=== PATIENT | male | born 1950 | race Caucasian/White ===

== ENCOUNTER 2019-07-25 12:08 | Inpatient (IN) ==
[2019-07-25] MEDS ORDERED: NS 1,000 ML IV PRN (12:38)
[2019-07-25 12:54] LABS: URINE SOURCE CLEAN CATCH
[2019-07-25 13:03] LABS: BILIRUBIN URINE NEGATIVE (NEGATIVE); BLOOD URINE NEGATIVE (NEGATIVE); COLOR YELLOW; GLUCOSE URINE NEGATIVE (NEGATIVE); KETONE URINE NEGATIVE (NEGATIVE); LEUKOCYTES URINE NEGATIVE (NEGATIVE); NITRITE URINE NEGATIVE (NEGATIVE); PH URINE 5.5; PROTEIN URINE TRACE mg/dL (NEGATIVE); SP GRAVITY URINE 1.023; TURBIDITY URINE CLEAR (CLEAR); UR EPITHELIAL CELLS <10 /HPF (<10); URINE BACTERIA NEGATIVE /HPF; URINE RBC <10 /HPF (<10); URINE WBC <10 /HPF (<10); UROBILINOGEN URINE NORMAL (NORMAL)
--- NOTE | 2019-07-25 13:05 | Diag Imaging Result Doc PS360 ---
CHEST-PORTABLE - 07/25/2019 INDICATION: weakness COMPARISON: 06/27/2018 FINDINGS: There is probably a hiatal hernia. The lungs are clear. Heart size is normal. No pneumothorax or pleural effusion. IMPRESSION: No acute disease. Electronically signed by Arun Betancur 07/25/2019 1:03 PM
[2019-07-25 13:19] LABS: ALBUMIN 3.8 g/dL (3.5-5.0); CALCIUM 8.8 mg/dL (8.8-10.2); CREATININE 1.2 mg/dL (0.7-1.2); POTASSIUM 4.9 mmol/L (3.5-5.1); TOTAL BILIRUBIN 0.4 mg/dL (0.20-1.00); TOTAL PROTEIN 6.4 g/dL (6.3-8.3)
[2019-07-25 13:23] LABS: UR AMPHETAMINES QUAL NONE DETECTED (NONE DETECT); UR BARBITUATES QUAL NONE DETECTED (NONE DETECT); UR BENZODIAZEPIN QUAL NONE DETECTED (NONE DETECT); UR CANNABINOIDS QUAL NONE DETECTED (NONE DETECT); UR COCAINE QUAL NONE DETECTED (NONE DETECT); UR METHADONE QUAL NONE DETECTED (NONE DETECT); UR METHAMPHETAMINE QUAL NONE DETECTED (NONE DETECT); UR OPIATES QUAL NONE DETECTED (NONE DETECT); UR OXYCODONE QUAL NONE DETECTED (NONE DETECT); UR PCP QUAL NONE DETECTED (NONE DETECT); UR PROPOXYPHENE QUAL NONE DETECTED (NONE DETECT); UR TCA QUAL NONE DETECTED (NONE DETECT)
[2019-07-25 13:26] LABS: BASO# 0.09 X1000 (0.0-0.2); BASO% 0.8 % (0.0-0.8); EOS# 0.02 X1000 (0.0-0.7); EOS% 0.2 % (0.0-10.0); HEMATOCRIT 18.2 % (42.0-52.0); HEMOGLOBIN 4.9 g/dL (14.0-18.0); IMM GRAN# 0.05 X1000 (0.0-0.04); IMM GRAN% 0.5 % (0.0-0.5); LYMPH# 1.17 X1000 (1.2-3.4); LYMPH% 10.9 % (20.5-51.1); MCH 20.1 PG (27-31); MCHC 26.9 g/dL (33-37); MCV 74.6 FL (81-99); MONO# 1.05 X1000 (0.11-0.59); MONO% 9.7 % (1.7-9.3); MPV 10.4 FL (7.4-10.4); NEUT% 77.9 % (42.2-75.2); PLT 514 X1000 (130-400); RBC 2.44 XMIL (4.7-6.1); RDW 19.1 % (11.5-14.5); WBC 10.78 X1000 (4.8-10.8)
[2019-07-25] MEDS ORDERED: NS 500 ML IV ONE (13:26)
--- NOTE | 2019-07-25 13:33 | EKG Report ---
Test Performed on : 07/25/2019 12:34:43 PM Test Reason : weakness dizziness Blood Pressure : / mmHG Vent. Rate : 096 BPM Atrial Rate : 096 BPM P-R Int : 138 ms QRS Dur : 078 ms QT Int : 368 ms P-R-T Axes : 050 007 048 degrees QTc Int : 464 ms Normal sinus rhythm. Increased R/S ratio in V1, consider early transition or posterior infarct Abnormal ECG When compared with ECG of 27-JUN-2018 17:33, No significant change was found Unconfirmed Result
[2019-07-25 13:34] LABS: INR 1.02; PROTIME 13.9 Seconds (11.0-16.0); PTT 25.9 Seconds (22.3-41.8)
[2019-07-25 14:07] LABS: OCCULT BLOOD 1 NEGATIVE (NEGATIVE)
[2019-07-25 15:14] LABS: ANISOCYTOSIS 2+; HYPOCHROM 1+; LYMPHS 10 % (21-51); MICROCYTOSIS 2+; MONO 12 % (1-9); POIKILOCYTOSIS OCCASIONAL; POLYCHROM OCCASIONAL; SEGS 78 % (42-75)
[2019-07-25] MEDS ORDERED: TYLENOL PO PRN (16:20)
[2019-07-25] MEDS ORDERED: ZOFRAN IV PRN (16:20)
[2019-07-25] MEDS ORDERED: NS 1,000 ML IV SCH (16:30)
[2019-07-25 19:07] LABS: RETIC% 3.23 % (0.8-2.1); RETIC-HE 15.8 PG (28.2-36.6)
--- NOTE | 2019-07-25 19:28 | HISTORY AND PHYSICAL ---
ADDENDUM: CHIEF COMPLAINT: Dizziness. Patient presented to the hospital with dizziness for the past 2 weeks. Denies any bleeding, bruising, hematemesis, hematochezia, melena. Does have history of hypertension. On exam he is awake, alert, he is oriented. He is in no distress while he is lying in the bed. His skin is pale. Hemoglobin and hematocrit was noted at 4 and 18, he was heme negative. We are going to admit him the hospital, type, cross, transfuse. Will continue to Hemoccult stools and will follow. cc: Brian Koo MD
--- NOTE | 2019-07-25 19:35 | HISTORY AND PHYSICAL ---
PRIMARY CARE PHYSICIAN: Dr. Marian Alas at the [facility] in [place]. CHIEF COMPLAINT: Weakness and dizziness. HISTORY OF PRESENT ILLNESS: Mr. Lowery is a 69-year-old male who presents with past medical history of hypertension, depression, and vitamin D deficiency. The patient presents to the ER with complaints of weakness, dizziness, increased thirst, vomiting and chills that have been substantially getting worse for the past 2 weeks. The patient did go to the [facility] this morning to see his psychiatrist. He was noted to be very pale. They recommended he come to the ER. The patient does deny any palpitations, chest pain, orthopnea, PND, cough, dyspnea, hemoptysis, nausea, melena, dysphagia, diarrhea, constipation, dysuria, urinary frequency, hematuria, muscle pain or weakness, syncope, or any other pertinent symptoms at this time. REVIEW OF SYSTEMS: A 10-point review of systems has been obtained, and all are negative except what is stated above in HPI. PAST MEDICAL HISTORY: 1. Hypertension. 2. Depression. 3. Vitamin D deficiency. PAST SURGICAL HISTORY: None. FAMILY HISTORY: Mother: Hypertension, diabetes, lupus. Father: OK. Sister: Lupus, HT cancer, breast cancer and colitis. Another sister has hypertension. SOCIAL HISTORY: The patient does live alone. He lives here in [place]. He is retired. He denies any smoking, alcohol or illicit drug use. He does not use a cane or a walker or oxygen, CPAP or BiPAP use. PATIENT PHARMACY: [facility] in [place]. ALLERGIES: No known drug allergies. HOME MEDICATIONS: 1. Lexapro 20 mg p.o. daily. 2. Amlodipine 10 mg 1/2 tablet p.o. daily. 3. Vitamin D3 1000 units p.o. daily. PHYSICAL EXAMINATION: VITAL SIGNS: Temperature 98.6 degrees, pulse rate 92, respiratory rate 22, blood pressure 108/64, O2 saturation 100% on room air. GENERAL: This is a 69-year-old male. He is lying in the ER stretcher. He is well nourished and well developed. He is in no acute distress at present time. HEENT: Atraumatic, normocephalic. Sclerae are pale. Pupils are equal, round, reactive to light. Mucous membrane is dry. NECK: Supple. No lymphadenopathy. Trachea is midline. No JVD. CARDIOVASCULAR: Regular rate and rhythm. No murmurs, gallops, or rubs appreciated. RESPIRATORY: Lung sounds clear. Equal chest excursion. Respirations nonlabored. No accessory muscle usage. GASTROINTESTINAL: Abdomen is soft, nontender, nondistended. Bowel sounds present x4. GENITOURINARY: No CVA tenderness noted. The patient is voiding without difficulty. Urine is clear, yellow. NEUROLOGIC: Patient is awake, alert and oriented, able to follow all my commands appropriately. The patient is hard of hearing, and I do have to yell to talk with him though. There do not appear to be any deficits though. MUSCULOSKELETAL: Full distal strength noted. No abnormalities. No deformities. EXTREMITIES: No clubbing, no cyanosis, no edema. DP and PT pulses are present and palpable. SKIN: Warm and dry. It is very pale. It is intact. There are no rashes. No bruises. No diaphoresis. Turgor is very poor. LABORATORY AND DIAGNOSTICS: White blood cell count 10.78, red blood cell count 2.44, hemoglobin 4.9, hematocrit 18.2, MCV 74.6, MCH 20.1, MCHC 26.9, RDW is 19.1, platelet count is 514,000. The patient is noted to have segmented neutrophils of 78, lymphocytes 10, monocytes 12, hypochromia 1+ , occasional polychromasia, poikilocytosis occasional, anisocytosis 2+, microcytosis 2+. Sodium 137, potassium 4.9, carbon dioxide 20, BUN 16, creatinine 1.2, glucose 128. Urinalysis is negative. Stool for occult blood is negative. Urine toxicology is negative. Chest x-ray shows no acute disease. EKG shows normal sinus rhythm with a rate of 96. ASSESSMENT: 1. Anemia without acute blood loss. 2. Generalized weakness. 3. Chronic hypertension. 4. Situational depression. 5. Vitamin E deficiency. PLAN: We will admit this patient to the medical floor. We are going to administer 2 units of packed red blood cells on this patient. We will repeat all his labs in the morning. I will add iron studies and a vitam B12 level to blood in lab. We are going to hold off on resuming his hypertension medications at this time. The patient's blood pressure is a little low at this time. We will resume his medications when needed. We will resume his depression medicine and his vitamin D medicine. I am going to start him on some IV fluid hydration, normal saline at 100 mL an hour. I have provided him with supplemental O2 as needed. I have provided him with a healthy heart diet, Tylenol p.r.n., Zofran p.r.n., Prilosec daily for GI prophylaxis. For DVT prophylaxis, I provided him with SCDs. I have placed him on a lunchroom monitor, and we will monitor him closely. All other further recommendations pending hospital course and laboratory data. Dictated by FELY Burleson for Brian Koo MD cc: MD Marian Ulloa MD MTDD
[2019-07-26] MEDS: PRILOSEC PO SCH (06:09)
[2019-07-26 06:13] LABS: BASO# 0.07 X1000 (0.0-0.2); BASO% 0.8 % (0.0-0.8); EOS# 0.06 X1000 (0.0-0.7); EOS% 0.7 % (0.0-10.0); IMM GRAN# 0.05 X1000 (0.0-0.04); IMM GRAN% 0.6 % (0.0-0.5); LYMPH% 23.4 % (20.5-51.1); MCH 22.7 PG (27-31); MCHC 29.2 g/dL (33-37); MCV 77.7 FL (81-99); MPV 10.2 FL (7.4-10.4); NEUT# 5.18 X1000 (1.4-6.5); NEUT% 60.5 % (42.2-75.2); PLT 427 X1000 (130-400); RBC 3.09 XMIL (4.7-6.1); RDW 19.7 % (11.5-14.5); WBC 8.56 X1000 (4.8-10.8)
[2019-07-26 06:30] LABS: AGAP 11; BUN 16 mg/dL (8-22); CALCIUM 8.6 mg/dL (8.8-10.2); CHLORIDE 107 mmol/L (98-107); COSMO 278; CREATININE 0.9 mg/dL (0.7-1.2); ESTIMATED GFR > 60; GLUCOSE 94 mg/dL (70-104); MAGNESIUM 2.1 mg/dL (1.5-2.7); POTASSIUM 4.4 mmol/L (3.5-5.1); SODIUM 139 mmol/L (136-145); TCO2 21 mmol/L (25-35)
[2019-07-26] MEDS ORDERED: TYLENOL PO ONE (06:33)
[2019-07-26] MEDS ORDERED: NS 500 ML IV ONE (06:33)
[2019-07-26] MEDS ORDERED: MISC. PHARMACY COMMUNICATION SCH (08:15)
[2019-07-26] MEDS ORDERED: LEXAPRO PO SCH (09:00)
[2019-07-26] MEDS ORDERED: VENOFER 200 MG in NS 100 ML IV ONE (09:00)
[2019-07-26] MEDS: VITAMIN D PO SCH (09:49)
[2019-07-26] MEDS: LEXAPRO PO SCH (09:49)
[2019-07-26 12:28] LABS: OCCULT BLOOD 1 NEGATIVE (NEGATIVE); OCCULT BLOOD 2 NEGATIVE (NEGATIVE)
[2019-07-26 16:46] LABS: BASO# 0.08 X1000 (0.0-0.2); BASO% 0.9 % (0.0-0.8); EOS# 0.09 X1000 (0.0-0.7); HEMATOCRIT 26.8 % (42.0-52.0); HEMOGLOBIN 8.1 g/dL (14.0-18.0); IMM GRAN# 0.04 X1000 (0.0-0.04); IMM GRAN% 0.5 % (0.0-0.5); LYMPH# 1.51 X1000 (1.2-3.4); LYMPH% 17.4 % (20.5-51.1); MCHC 30.2 g/dL (33-37); MCV 79.3 FL (81-99); MONO# 1.38 X1000 (0.11-0.59); MONO% 15.9 % (1.7-9.3); MPV 10.1 FL (7.4-10.4); NEUT# 5.59 X1000 (1.4-6.5); NEUT% 64.3 % (42.2-75.2); PLT 395 X1000 (130-400); RBC 3.38 XMIL (4.7-6.1); RDW 19.5 % (11.5-14.5); WBC 8.69 X1000 (4.8-10.8)
--- NOTE | 2019-07-26 21:03 | PROGRESS NOTE ---
DATE: 07/26/2019 SUBJECTIVE: The patient has no new complaints. States he is feeling okay. He has had no blood in his stool. He has been heme-negative. PHYSICAL EXAMINATION: Vital Signs: Reviewed. He is awake, alert, oriented. He is pleasant to talk with, lying flatly in the bed. HEENT: Normocephalic. Neck: Supple. Cardiovascular: Regular rate. Chest: Clear. Abdomen: Soft. Extremities: Moves all extremities. Neurologic: No changes. ASSESSMENT/PLAN: Anemia, likely of chronic iron deficiency. His hemoglobin and hematocrit are still low at 7 and 23. Will transfuse 1 more unit, and we are going to add iron transfusion, Venofer. We will recheck in the a.m. If stable, he can be discharged home and follow up outpatient. cc: Brian Koo MD
[2019-07-27] MEDS: PRILOSEC PO SCH (06:05)
[2019-07-27 06:56] LABS: HEMATOCRIT 27.1 % (42.0-52.0); MCH 23.3 PG (27-31); MCHC 29.5 g/dL (33-37); MCV 78.8 FL (81-99); MPV 10.4 FL (7.4-10.4); RBC 3.44 XMIL (4.7-6.1); RDW 19.9 % (11.5-14.5); WBC 10.8 X1000 (4.8-10.8)
[2019-07-27 07:15] LABS: AGAP 12; ALBUMIN 3.3 g/dL (3.5-5.0); ALKALINE PHOSPHATASE 69 U/L (32-122); BUN 17 mg/dL (8-22); CALCIUM 8.8 mg/dL (8.8-10.2); CHLORIDE 105 mmol/L (98-107); COSMO 277; ESTIMATED GFR > 60; GLUCOSE 92 mg/dL (70-104); GOT 14 U/L (10-34); GPT 14 U/L (10-44); POTASSIUM 4.1 mmol/L (3.5-5.1); SODIUM 138 mmol/L (136-145); TCO2 21 mmol/L (25-35); TOTAL PROTEIN 6.1 g/dL (6.3-8.3)
[2019-07-27 08:58] VITALS: BP 143/73
[2019-07-27] MEDS: LEXAPRO PO SCH (09:57)
[2019-07-27] MEDS: VITAMIN D PO SCH (09:57)
--- NOTE | 2019-07-27 16:06 | PROVIDER DOCUMENTATION ---
This chart was entered by Lizzie Vargas Scribe, acting as scribe for Merced Enriquez MD. HPI-General Adult - General Chief Complaint: Weakness Stated Complaint: HIGH HR / DIZZY / VOMITTING Time Seen by Provider: 07/25/19 12:12 Source: family Allergies/Adverse Reactions: Patient Allergies Allergy/AdvReac Type Severity Reaction Status Date / Time No Known Allergies Allergy Verified 06/27/18 16:28 Home Medications: Home Medication List Medication Instructions Recorded Confirmed Last Taken Type Amlodipine Besylate [Norvasc] 0.5 tab PO DAILY #60 tab 07/01/18 07/25/19 07/25/19 08:00 Rx Acetaminophen [Tylenol] 650 mg PO Q6H PRN PRN 07/25/19 07/25/19 Unknown History Cholecalciferol (Vit D3) [Vitamin 1,000 unit PO DAILY 07/25/19 07/25/19 Unknown History D3] Escitalopram Oxalate [Lexapro] 20 mg PO DAILY 07/26/19 07/26/19 Unknown History Ferrous Sulfate [Ferrousul] 325 mg PO DAILY #30 tab 07/27/19 Unknown Rx - History of Present Illness -Gen Adult Nature of Presenting Problems: Patient is a 69 year old male who presents with dizziness. Family states dizziness has been present for 2 weeks. Patient denies pain currently. Family states history of HTN and depression. Location of Pain/Injury: reports: none Quality of Pain: reports: none Severity: reports: mild Onset/Duration: reports: other (2 weeks) Timing: reports: still present Context/Activities at Onset: reports: light activity Associated Symptoms: reports: dizziness Similar Symptoms Previously?: Yes Recently seen or treated by another doctor?: No Review of Systems - Adult - REVIEW OF SYSTEMS - ADULT Constitutional: reports: no symptoms reported Eyes: reports: no symptoms reported Ears, Nose, Mouth & Throat: reports: no symptoms reported Cardiovascular: reports: no symptoms reported Respiratory: reports: no symptoms reported Gastrointestinal: reports: no symptoms reported Genitourinary: reports: no symptoms reported Musculoskeletal: reports: no symptoms reported Integumentary: reports: no symptoms reported Neurological: reports: see HPI, dizziness/vertigo (dizziness). denies: headache/migraines, syncope Psychiatric: reports: no symptoms reported Endocrine: reports: no symptoms reported Hematologic/Lymphatic: reports: no symptoms reported Allergic/Immunologic: reports: no symptoms reported All Other Systems: Reviewed and Negative Past History - Adult - PAST MEDICAL HISTORY-ADULT Review of Records: reports: Old Records Reviewed, Nursing Assessment Review, Medications Reviewed, Social history reviewed & non-contributory. Major Childhood Illnesses: reports: denies history Cardiovascular: reports: HTN Respiratory: reports: denies history Gastrointestinal: reports: denies history Obstetrical/Gynecological: reports: denies history Genitourinary: reports: denies history Musculoskeletal: reports: denies history Neurological: reports: denies history Psychiatric: reports: depression Endocrine/Immune: reports: denies history Other Conditions: reports: denies history - PRIOR SURGERIES/PROCEDURES Surgical/Procedure History: reports: none - IMMUNIZATION STATUS Childhood Immunizations: See Nurse Assessment Flu Vaccine: See Nurse Assessment - FAMILY HISTORY Family History: reviewed, not pertinent - SOCIAL HISTORY Smoking: denies Substance Use: denies Living Situation: alone Physical Exam-General - PHYSICAL EXAM-ADULT Initial Vital Signs Reviewed: Yes - CONSTITUTIONAL General Appearance: alert, no apparent distress - HEAD, EARS, NOSE, MOUTH & THROAT HENMT: normocephalic/atraumatic, moist mucous membranes - RESPIRATORY Respiratory: chest non-tender, lungs clear, normal breath sounds - CARDIOVASCULAR Cardiovascular: normal peripheral pulses, regular rate, rhythm - GASTROINTESTINAL (ABDOMEN) Abdominal Exam: normal bowel sounds, non tender, soft - GENITOURINARY Rectal Exam: normal exam. negative: blood streaked stool, tenderness - MUSCULOSKELETAL Extremity: non-tender, normal inspection - SKIN Integumentary: normal turgor, warm/dry, pallor - NEUROLOGIC Neurologic: grossly normal - PSYCHIATRIC Psych/Mental Status: normal mood/affect, oriented x 3 Progress - PLAN OF CARE/RESULTS Progress/Plan/Lab Results: Vital Signs - 8 hr 07/25/19 12:15 Temperature 97.7 F Pulse Rate 97 H Respiratory Rate 18 Blood Pressure 109/72 O2 Sat by Pulse Oximetry 100 Orders Category Date Time Status Cardiac Monitoring DIRECTED Care 07/25/19 12:38 Active Finger Stick Blood Sugar (ED) DIRECTED Care 07/25/19 12:38 Active Misc. NRSG Communication Order DIRECTED Care 07/25/19 12:38 Active Nursing- Obtain EKG ONCE Care 07/25/19 12:23 Active Saline Loc NOW Care 07/25/19 12:38 Active CHEST-PORTABLE [RAD] Stat Exams 07/25/19 12:38 Ordered AMYLASE [CHEM] Stat Lab 07/25/19 12:23 Ordered CBC WITH DIFF [HEME] Stat Lab 07/25/19 12:23 Ordered CBC WITH ELECTRONIC DIFF [HEME] Stat Lab 07/25/19 12:38 Ordered COMPREHENSIVE METABOLIC PANEL [CHEM] Stat Lab 07/25/19 12:37 Ordered COMPREHENSIVE METABOLIC PANEL [CHEM] Stat Lab 07/25/19 12:38 Uncollected LIPASE [CHEM] Stat Lab 07/25/19 12:37 Ordered PROTIME WITH INR [COAG] Stat Lab 07/25/19 12:38 Uncollected PTT [COAG] Stat Lab 07/25/19 12:38 Uncollected TROPONIN T HIGH SENSITIVITY Stat Lab 07/25/19 12:38 Uncollected URINALYSIS W/POSS RFLX CULT [URINALYSIS] Stat Lab 07/25/19 12:38 Uncollected URINALYSIS [URINALYSIS] Stat Lab 07/25/19 12:37 Or[address] URINE DRUG SCREEN PL Stat Lab 07/25/19 12:38 Uncollected 0.9% Sodium Chloride Inj [Ns] 1,000 ml Med 07/25/19 12:38 Ordered IV 999 mls/hr EKG [EKG] Stat Ther 07/25/19 12:23 Ordered 1348 - Desk tech consulted with [facility]. [facility] stated call back later because she is on the other line currently. 1410 - Desk tech consulted with [facility]. Aleida at [facility] states she will call back about the bed situation. 1514 - Aleida from [facility] called back and stated [facility]. Result Diagrams: 07/27/19 06:08 07/27/19 06:08 - EKG 1 Time of EKG reading by physician:: 12:34 EKG Read and Signed by:: Merced Enriquez EKG Interpretation (*Must complete 3 of following elements*): Abnormal Rate: 96 Rhythm: NSR [place]: normal [place] Interval: normal Comments: increased R/S ratio in V1, consider early transition or posterior infarct - XRAY 1 XRAY Study: Chest Impression: See EMR Report ( CHEST-PORTABLE - 07/25/2019 INDICATION: weakness COMPARISON: 06/27/2018 FINDINGS: There is probably a hiatal hernia. The lungs are clear. Heart size is normal. No pneumothorax or pleural effusion. IMPRESSION: No acute disease. Electronically signed by Arun Betancur 1:03 PM 07/25/19 1303 Interpreting Physician: Arun Betancur MD Dictated Date/Time: 07/25/19 1303 cc: Merced Enriquez MD; None,PCP) - CONSULTS/PCP/HOSPITALIST Notification #1 *Consult/PCP/Hospitalist*: Dr. Koo Time Discussed: 16:02 Reason/Comments: Dr. Enriquez consulted with Dr. Koo about patient Departure - Departure Date of Disposition Decision: 07/25/19 Time of Disposition Decision: 13:34 DIAGNOSIS: Anemia Qualifiers: Anemia type: unspecified type Qualified Code(s): D64.9 - Anemia, unspecified Disposition: ADMITTED INPATIENT 09 Certified Medical Emergency: Emergent Condition: Good - Critical Care Note This patient required my direct & personal management of CC.: No Attestation - Physician/ PETER Attestation Patient care was provided by Advanced Practice Provider:: No The physician spent face to face time with patient:: Yes Advanced Practice Provider documentation review:: Supervising physician onsite and consulted in the evaluation and care of this patient. The physician did have a face to face encounter with the patient. This chart was documented by the indicated scribe, (Lizzie Vargas Scribe) and accurately reflects the services I performed and decisions made by me, Merced Enriquez MD, as attested by the provider's signature.
--- NOTE | 2019-07-28 14:31 | DISCHARGE SUMMARY ---
ADMISSION DATE: 07/25/2019 DISCHARGE DATE: 07/27/2019 ADMISSION DIAGNOSES: 1. Anemia without acute blood loss. 2. Generalized weakness. 3. Chronic hypertension. 4. Situational depression. 5. Vitamin D deficiency. DISCHARGE DIAGNOSES: 1. Anemia, chronic iron deficiency anemia, got blood. 2. Generalized weakness. 3. Chronic hypertension. 4. Situational depression. 5. Vitamin D deficiency. CONSULTATIONS: None. SURGERIES AND PROCEDURES: None. HOSPITAL COURSE: Mr. Marcial Lowery is a 69-year-old male who presented to the emergency department here at [facility]. He has a history of hypertension, depression, and vitamin D deficiency, came in with complaints of weakness and dizziness. He also had increased thirst, vomiting, chills that had been substantially getting worse for the last 2 weeks prior to admission. He did apparently go to the [facility] that morning to see a psychiatrist who had noted him to be very pale and recommended him going to the emergency department. He had a significantly low hemoglobin and hematocrit of 4.9 and 18.2, so during his stay he received a total of 3 units of packed red blood cells and now he will be discharged with a hemoglobin of 8 and hematocrit of 27. Platelet count up to 408,000. There were no obvious sources of bleeding noted. His folate was a little low. He had a low iron, low ferritin and was started on iron at home. DISCHARGE VITAL SIGNS: Temperature 98.1 degrees, heart rate 92, respiratory rate 18, blood pressure 143/73, O2 saturation 99% on room air. LABORATORY DATA: White blood cells 10,000. Hemoglobin 8, hematocrit 27, platelet count 408,000. Sodium 138, potassium 4.1, BUN 17, creatinine is 1.0, glucose 92, calcium 8.8. Iron is 10, ferritin 5, total bilirubin 0.60, AST 14, ALT 14, albumin 3.3. Amylase was 87, lipase 52, vitamin B12 was 273 and folate is 6.6. Stool was negative for any blood. There was negative urine drug screen. There was no microbiology sample. IMAGING: Chest x-ray with no acute disease. EKG showed normal sinus rhythm, rate 96, QTc is 464. DISCHARGE MEDICATIONS: 1. Lexapro 20 mg p.o. daily. 2. Tylenol 650 mg p.o. q.6 hours p.r.n. 3. Vitamin D3, 1000 units p.o. daily. 4. Ferrous sulfate 325 mg p.o. daily. 5. Amlodipine besylate 5 mg p.o. daily. PHYSICIAN FOLLOW-UP: [facility] DISCHARGE ACTIVITY: As tolerated. DISCHARGE DIET: Heart healthy. DISCHARGE INSTRUCTIONS: If your condition changes, contact physician and/or return to the emergency department. Changes may include, but not limited to shortness of breath, increased fatigue, excessive bleeding, unexplained weight loss or gain, unmanageable pain, signs or symptoms of infection. DISCHARGE DISPOSITION: Home. Dictated by FELY Pugh for Brian Koo MD cc: FELY Pugh MD
--- NOTE | 2019-07-28 18:39 | DISCHARGE SUMMARY ---
ADMISSION DATE: 07/25/2019 DISCHARGE DATE: 07/27/2019 ADDENDUM: Patient seen and examined by me. Full note dictated and discussed with nurse practitioner. On discharge, the patient is awake, alert and oriented. He is in no distress. He has been heme- positive on 2 separate occasions. He has no other complaints. We did type and crossmatch and transfuse. We also gave him an iron transfusion. Discussed with him that he is iron-deficient and needs to take iron. We wrote a prescription for iron sulfate. He is to follow up outpatient with his primary care. He has recently had a colonoscopy that was negative. He certainly may benefit from an EGD, although he has been heme-negative throughout the hospitalization. He is to follow up, as he certainly may require bone marrow biopsy in the future if he continues to become anemic. cc: Brian Koo MD
== END 2019-07-27 10:55 | disposition home or self-care (01) | DRG 812 ==
LOC: P.ED 12:08 → P.MEDSURG 17:26
PROVIDERS: ATTEND Family Medicine